=== PATIENT | male | born 1940 | race African-American/Black ===

== ENCOUNTER 2017-02-15 16:20 | Inpatient (IN) | payer MEDICARE, OTHER ==
--- NOTE | ~2017-02-15 | CN ---
Consultation Report [facility] [address] [facility] [place]. [address] NAME: KURT GRANDE : 42 STATUS : ADM IN [facility]#: [id number] AGE: 76 ADM/REG DATE : 02/15/17 MR#: [id number] REPORT SERV DATE: 02/16/17 DICTATED BY: JOSE PAINTER DATE: 02/15/17 REPORT STATUS : Draft TRANSCRIBED BY: MODL DATE: 02/15/17 CONSULTATION REPORT DATE OF CONSULTATION: Thank for the opportunity to consult on Mr. Grande. I have spent over an hour and a half of critical care time participating his care. We joined the Cardiology Service in the research laboratory manager at 5:00 p.m., helped stabilize the patient, and then move the patient up to the ICU. Reviewed his labs, changed his central line because of a poorly sutured central line at the outside hospital that originated the admission and vent stabilization and adjustments before 7:00 p.m. Mr. Grande is a 76-year-old man with no previous label of significant cardiac disease. He was in [place] and then collapsed, became unresponsive, had bystander CPR by some friends who were nurses, was admitted to an outside hospital and transferred as a code STEMI. In the research laboratory manager, he had no evidence of acute coronary occlusion and had decent LV systolic function still, though remained in shock, requiring multiple pressors. He was intubated before transfer and remains on the ventilator. PAST MEDICAL HISTORY: As noted above. Negative for cardiac disease, but positive for multiple myeloma, on Revlimid and dexamethasone. His BPH and hypertension, but no other significant cardiac or pulmonary disease. REVIEW OF SYSTEMS: Review of 10 systems could not be obtained from the patient who is intubated and unresponsive, though we did discuss the presentation with his family. SOCIAL HISTORY: Negative for tobacco abuse. FAMILY HISTORY: Noncontributory to this acute presentation. PHYSICAL EXAMINATION: GENERAL: He is intubated, hypotensive, hypoxic on mechanical ventilation, on multiple pressors. HEENT: Normocephalic and atraumatic. NECK: Supple. No lymphadenopathy. No JVD. CHEST: Symmetrical with good expansion bilaterally. He has bilateral crackles with poor air flow. CARDIOVASCULAR: He has S1 and S2, which are regular rate and rhythm. ABDOMINAL: Soft with diminished bowel sounds. EXTREMITIES: He has no edema. No clubbing. No cyanosis. ASSESSMENT AND PLAN: 1. Shock. The patient is in persistent shock. This is very concerning because his procalcitonin is normal and his cardiac evaluation by catheterization was fairly Consultation Report [place] [id number] [place]. [address] NAME: KURT GRANDE : 42 STATUS : ADM IN PAT#: [id number] AGE: 76 ADM/REG DATE : 02/15/17 MR#: [id number] REPORT SERV DATE: 02/16/17 DICTATED BY: JOSE PAINTER DATE: 02/15/17 REPORT STATUS : Draft TRANSCRIBED BY: MODL DATE: 02/15/17 unremarkable, so the etiology of this shock and his sudden decompensation is unclear to us. His BNP is not elevated and massive pulmonary embolism is less likely in that setting. He is chronically immunosuppressed on the dexamethasone and Revlimid, but again the procalcitonin is not elevated. We did check his cortisol level, which was greater than 40 despite chronic suppression with dexamethasone, so acute adrenal crisis is also less likely. We have recommended continued supportive care with aggressive pressor support, volume resuscitation, since he has good cardiac function and normal BNP and empiric antibiotic therapy despite the low procalcitonin since we do not have a good source for the origin of the shock. Unfortunately, he remains very hypoxemic, difficult to oxygenate, hypotensive, requiring multiple pressors and there is not any identifiable reversible condition and he now has evidence of shock liver and acute kidney injury. He has a very high risk of morbidity and mortality, and his family has been updated. CATE/SHARI Jose Painter M.D. / [id number] CC: Alber Araya MD
--- NOTE | ~2017-02-15 | HP ---
History And Physical [facility] [address] [facility] [place]. [address] NAME: KURT GRANDE : 42 STATUS : ADM IN PAT#: [id number] AGE: 76 ADM/REG DATE : 02/15/17 MR#: [id number] REPORT SERV DATE: 02/16/17 DICTATED BY: ALBER ARAYA DATE: 02/15/17 REPORT STATUS : Draft TRANSCRIBED BY: MODL DATE: 02/15/17 DATE OF ADMISSION: 02/15/2017 ADMISSION DIAGNOSES: 1. Cardiac arrest. 2. Shock. HISTORY OF PRESENT ILLNESS: Mr. Grande is a 76-year-old male who presented to [facility] as a transfer from [facility] for management of cardiac arrest and shock presumed to be secondary to a cardiac etiology. History is obtained from clinicians and subsequently from family as the patient was not able to provide history. Apparently, the patient was in [place] today and collapsed suddenly. This was a witnessed arrest. Subsequently, he had CPR in the field. Initial rhythm unknown, but there is no report of the patient having received any defibrillation. He received CPR with eventual return to spontaneous circulation, and then upon arrival to the ER, he was noted to have an abnormal EKG with ST elevations in lead III concerning for inferior GA. Code STEMI was activated and based on my discussion with the ER physician, I agreed to bring the patient to the labor relations officer for further management. Both in the ER and en route, the patient required additional ACLS and pressor support. Upon arrival, pressures were marginal, and after I was unable to localize a reliable pulse, CPR was again initiated. Eventually, we obtained arterial access and cardiac catheterization was performed. These findings are detailed separately, but in summary demonstrated no evidence of coronary artery disease and normal LV systolic function suggestive of a noncardiac etiology to his presentation. PAST MEDICAL HISTORY: 1. Multiple myeloma, recently initiated medical treatment. 2. Allopurinol. 3. Hypertension. MEDICATIONS: Full med list not available at the time of dictation. Per family, the patient was taking Revlimid, dexamethasone, Cartia, and allopurinol amongst other medications. ALLERGIES: NONE KNOWN. FAMILY HISTORY: Noncontributory. SOCIAL HISTORY: The patient is . He does not smoke, drink alcohol, or use tobacco. He is a musician. REVIEW OF SYSTEMS: Unable to be performed, but per the family, the patient has been short of breath and generally weak recently. PHYSICAL EXAMINATION: VITAL SIGNS: Upon arrival to labor relations officer, blood pressure 50/30 noninvasively, heart rate approximately 100, intubated but with spontaneous respirations. History And Physical [address] [place]. [address] NAME: KURT GRANDE : 42 STATUS : ADM IN PAT#: [id number] AGE: 76 ADM/REG DATE : 02/15/17 MR#: [id number] REPORT SERV DATE: 02/16/17 DICTATED BY: ALBER ARAYA DATE: 02/15/17 REPORT STATUS : Draft TRANSCRIBED BY: SHARI DATE: 02/15/17 CARDIOVASCULAR: Limited exam notable for absence of murmurs with irregular rhythm. LUNGS: Clear breath sounds bilaterally. ABDOMEN: Soft abdomen with hypoactive bowel sounds. EXTREMITIES: Warm extremities with marginal pulses radially and femorally. IMAGING STUDIES: EKG demonstrates idioventricular rhythm with ST-elevations isolated to lead III. No reciprocal ST depressions, QRS prolongation. No prior EKG for comparison. Cardiac cath detailed separately and summarized in HPI. IMPRESSIONS/RECOMMENDATIONS: 1. Cardiac arrest, PEA, unknown etiology at this time. 2. Shock, suspect vasodilatory shock in the absence of findings supportive of cardiac etiology. 3. History of multiple myeloma. 4. Respiratory failure. 5. Metabolic/respiratory acidosis. The patient will be admitted to the CCU and will be treated with hypothermia protocol and pressor support, currently requiring high dose of levo and epinephrine. Based on my discussion with Critical Care, we will likely manage him initially with stress-dose steroids and broad-spectrum antibiotics while workup is ongoing. We will wean pressors as required. I had a lengthy discussion with the family about his presentation and findings and they are aware of the high mortality associated with this condition. BEVERLEY/SHARI Alber Araya MD / [id number] CC: Alber Araya MD
--- NOTE | ~2017-02-15 | DS ---
Discharge Summary [facility] [address] [place]. [address] NAME: KURT SANCHEZ : 44 STATUS : DIS IN PAT#: [id number] AGE: 76 ADM/REG DATE : 02/15/17 MR#: [id number] REPORT SERV DATE: 04/01/17 DICTATED BY: TOM GAYTAN DATE: 04/01/17 REPORT STATUS : Draft TRANSCRIBED BY: MODL DATE: 04/01/17 ADMISSION DATE: 02/15/2017 DISCHARGE DATE: 02/16/2017 SUMMARY DATE OF : 02/16/2017 DIAGNOSES: 1. Cardiac arrest. 2. Acute respiratory failure. 3. Shock. 4. Acute renal failure. 5. Metabolic acidosis. 6. Shock liver. 7. Anoxic brain injury. SUMMARY: Please see dictated H and P and consult notes for full patient presentation and history. BRIEF SUMMARY: The patient was a 76-year-old gentleman, who presented following a witnessed cardiac arrest in [employer]. Bystander CPR was performed. The patient was admitted to the ICU with severe shock and respiratory failure, as well as shock liver and acute renal failure. By the time Neurology examined the patient, he was already exhibiting loss of brainstem reflexes and had a very poor neurologic outcome. The patient's family decided to make him comfort care measures, and he was terminally extubated and with family at bedside. CJ/SHARI Tom Gaytan MD / [id number] CC: Alber Araya MD
--- NOTE | ~2017-02-15 | EEG ---
Electroencephalogram [facility] [address] [facility] [place]. [address] NAME: KURT SANCHEZ : 44 STATUS : ADM IN PAT#: [id number] AGE: 76 ADM/REG DATE : 02/15/17 MR#: [id number] REPORT SERV DATE: 02/16/17 DICTATED BY: DATE: REPORT STATUS : Draft TRANSCRIBED BY: MODL DATE: 02/16/17 Neurology EEG CLINICAL INDICATIONS: Comatose state, post anoxic brain injury. DESCRIPTION: This EEG performed with 10/20 electrode placement system. During the EEG study, the patient was noted to have low amplitude throughout EEG. No reactivity was noted to noxious stimulation applied to right upper extremity nail bed as well as sternal rub and clapping. Photic stimulation was performed, and no amplitude, no driving response was seen. During the EEG study, the patient was noted to have low amplitude throughout EEG persistence throughout the entire EEG study. No variation or reactivity was seen. EKG artifact was noted throughout the entire EEG study. INTERPRETATION: This EEG study obtained entirely during comatose state may be considered abnormal secondary to low amplitude throughout EEG, likely consistent with brain or severe brain injury. Clinical correlation is recommended. [facility]/MODL Toñito Watson MD / [id number] CC: Alber Araya MD
--- NOTE | ~2017-02-15 | CN ---
Consultation Report [facility] [address] [place]. [address] NAME: KURT GRANDE : 42 STATUS : ADM IN PAT#: [id number] AGE: 76 ADM/REG DATE : 02/15/17 MR#: [id number] REPORT SERV DATE: 02/16/17 DICTATED BY: JIM HSU DATE: 02/16/17 REPORT STATUS : Draft TRANSCRIBED BY: MODL DATE: 02/16/17 CONSULTATION NOTE DATE OF CONSULTATION: 02/16/2017 TIME OF CONSULT: 11:11 a.m. CONSULTING GROUP: [facility]. CHIEF COMPLAINT: Suspicious for cardiac arrest and shock. EKG suspicious for STEMI; however, clean coronaries, ESMER, shock liver, multiple organ failure, multiple myeloma now max pressors and no brain waves on EEG. HISTORY OF PRESENT ILLNESS: Mr. Grande is a 76-year-old, gentleman who sustained a witnessed cardiac arrest at [employer], what appear to be a cardiac arrest. The patient was brought to [facility] and electrolytes appeared stable, but the patient was then emergently transferred to [facility] for coronary catheterization. This revealed normal LV function and clean coronaries. Therefore, etiology of his shock and episode may be sepsis related. Dr. Painter saw the patient, and mentioned a low procalcitonin, but as the night went on, the patient had increased pressor requirements, increased ventilator requirements, and was bleeding from several different lines and tubes sites. His rectal Matthews, OG tube, ET tube and several arterial lines and IV accesses were all bleeding within or inside of the tubing. He is currently on max dose Levophed, epinephrine, and Rigoberto- Synephrine vasopressin. Dr. Araya and Dr. Painter asked me to see the patient for ESMER secondary to shock AT. He is currently on D5W with 2 amps of bicarb at 100 mL an hour. His last blood gas showed a pH of 7.18 with a pCO2 of 39, and bicarbonate 14.3, however, he is requiring FiO2 of 100 just to maintain a PO2 of 77. His platelet count is down to 53. He has a history of multiple myeloma, on several chemotherapy agents. His urine output is only 20 mL of dark nena urine. There were emotional family members at the bedside; however, next of kin is his son who does not appear to be functional enough to make decisions as he is inebriated. Security was notified, I spoke with ICU nursing and nurse river crossing supervisor. They are going to talk to risk management as well as ethical committee at [facility] to determine where to progress from here in terms of decision making. He has a girlfriend and an ex-, both of which are appropriate, but not deemed to be next of kin. PAST MEDICAL HISTORY: Multiple myeloma, hypertension, and benign prostatic hypertrophy. FAMILY HISTORY: Noncontributory. SOCIAL HISTORY: Lives with a girlfriend. Has an ex-. Has a son who has psychological issues and goes to [facility] frequently currently. Son is inebriated. No tobacco. [facility] [place] [facility]. Works as a musician. REVIEW OF SYSTEMS: Consultation Report [place] [id number] [place]. [address] NAME: KURT GRANDE : 42 STATUS : ADM IN [facility]#: [id number] AGE: 76 ADM/REG DATE : 02/15/17 MR#: [id number] REPORT SERV DATE: 02/16/17 DICTATED BY: JIM HSU DATE: 02/16/17 REPORT STATUS : Draft TRANSCRIBED BY: SHARI DATE: 02/16/17 Unable to obtain due to patient being in severe shock requiring maximum support in ICU. PHYSICAL EXAMINATION: VITAL SIGNS: Temperature 97.7, pulse of 112, blood pressure 105/74, he is on max FiO2 of 100, PEEP of 8. GENERAL: He is obtunded, gravely ill. EYES: Swollen eyelids, closed eyes. ENT: OG tube with gross blood. ET tube with bloody aspirate. LYMPH: Unable to assess due to swelling. SKIN: Mottled appearance, cold and clammy. HEART: S1, S2. Tachycardic, on four maximum doses of pressors. LUNGS: Intubated, ventilated, rhonchi all rolon. Maximum FiO2 requirement. ABDOMEN: Rectal Matthews with gross blood. He has distended abdomen. EXTREMITIES AND PSYCH: Scant dark urine in Matthews, he is bleeding around lines. LABORATORY DATA: Chest x-ray shows no pneumothorax, multifocal bilateral airspace consolidation, most likely pneumonia and distended stomach. ABG; pH of 7.18, pCO2 of 39, PO2 of 77, bicarbonate 14.3, 91% O2 saturation on FiO2 of 100. White count 3.0, hemoglobin 10.3, hematocrit 29.8, and platelets 53. Sodium 149, potassium 2.5, chloride 109, bicarb 18, BUN 45, creatinine 2.06 and glucose 363. Calcium 6.5, albumin 1.3, magnesium 2.7, phosphorus 8.3, ALT 2304, AST 2841, LDH 1330, ferritin 4754, troponin I 9.95, lactic acid 16.2, ammonia level 200 and ferritin 4754. ASSESSMENT AND PLAN: Mr. Grande is a 76-year-old, gentleman with multiorgan failure from hypotension shock, most likely fatal arrhythmia event at [employer] witnessed, then etiology could be sepsis pneumonia, which was shown on x-ray. He now has gravely ill labs. He has underlying multiple myeloma, taking chemotherapy and ATN. Renal: The patient, due to his grim prognosis, at high mortality, is not an BPM ANALYST or renal replacement therapy candidate. He is currently on four maximum dose pressors. He is bleeding from most sites, oral, rectal and around IV and arterial lines. Family is aware. Risk Management and Ethics have been aiding in decision making from [facility]. I spoke with JOB ANALYSIS MANAGER about the high probability of mortality and options for withdrawal of care. His EEG showed that he had no brain waves functional or conducive to life. We will sign off and recommend withdrawal of care without further heroic efforts. LOUANN/SHARI Jim Hsu M.D. / [id number] Consultation Report [address] [address] NAME: KURT GRANDE : 42 STATUS : ADM IN [facility]#: [id number] AGE: 76 ADM/REG DATE : 02/15/17 MR#: [id number] REPORT SERV DATE: 02/16/17 DICTATED BY: JIM HSU DATE: 02/16/17 REPORT STATUS : Draft TRANSCRIBED BY: MODL DATE: 02/16/17 CC: Alber Araya MD
--- NOTE | ~2017-02-15 | CN ---
Consultation Report [facility] [address] [place]. [address] NAME: KURT SANCHEZ : 44 STATUS : ADM IN [facility]#: [id number] AGE: 76 ADM/REG DATE : 02/15/17 MR#: [id number] REPORT SERV DATE: 02/16/17 DICTATED BY: DATE: REPORT STATUS : Draft TRANSCRIBED BY: MODL DATE: 02/16/17 NEUROLOGY CONSULTATION DATE OF CONSULTATION: 02/16/2017 REASON FOR CONSULT: Encephalopathy. HISTORY OF PRESENT ILLNESS: This is a 76-year-old male who sustained cardiac arrest at [facility] on 02/15/2017, CPR was performed in the field. The patient, unfortunately, coded again while en route from [place] to [facility] and required resuscitation at [facility] as well as in the cath lab technologist. The patient was started on 4 pressors secondary to hypotension. Afterwards hypothermia protocol was attempted, however secondary to unstable hemodynamic signs, hypothermia was terminated. The patient has not been on any sedations or paralytics afterwards. No jerking or shaking with seizure- like activity was otherwise observed by the nursing staff. No further event was noted overnight. The patient was not noted to have significant coronary artery disease at the cath lab technologist. Overnight, the patient was not noted to have any spontaneous movement or improvement of neuro status. The patient, prior to the hospitalization, was not noted to have any recent illness, fever, chills, nausea, vomiting, or complaints of shortness of breath. PAST MEDICAL HISTORY: The patient's past medical history is significant for history of multiple myeloma, recently initiated on medical therapy as well as hypertension. FAMILY HISTORY: No significant family history was noted although the patient is unable to provide answers. SOCIAL HISTORY: Per medical records, no tobacco, alcohol, or recreational drug usage. REVIEW OF SYSTEMS: Otherwise unable to be obtained secondary to the patient's current mental status. ALLERGIES: AT THE TIME OF EVALUATION, THE PATIENT WAS NOTED TO HAVE NO KNOWN DRUG ALLERGIES. MEDICATIONS: The patient's current medications consist of heparin subcu; Protonix; Solu- Cortef; multivitamin; thiamine; vancomycin; and Zosyn. In addition, the patient was on epinephrine, Levophed, and Rigoberto-Synephrine as well as vasopressor. PHYSICAL EXAMINATION: VITAL SIGNS: The patient was noted to have vital signs with T-max of 98.2, heart rate of 107 to 128, respirations of 17 to 18, and blood pressure of 74 to 115 over 36 to 79. GENERAL: The patient is well developed, well nourished, in no acute distress. CARDIOVASCULAR EXAMINATION: Tachycardic. No carotid bruits were otherwise auscultated. PULMONARY: Examination was clear to auscultation bilaterally. NEUROLOGICAL EXAMINATION: Consultation Report [address] [place]. [address] NAME: KURT SANCHEZ : 42 STATUS : ADM IN PAT#: [id number] AGE: 76 ADM/REG DATE : 02/15/17 MR#: [id number] REPORT SERV DATE: 02/16/17 DICTATED BY: DATE: REPORT STATUS : Draft TRANSCRIBED BY: MODL DATE: 02/16/17 Generally, the patient is comatose, intubated. No sedation was on board; not following commands and nonverbal. Cranial nerves 2 through 12, pupils are fixed, 3 mm not reactive to light at the time of evaluation. No horizontal eye movement or oculocephalic maneuver. No [id number]-[id number] response was noted. No corneal reflex was noted. No grimace to noxious stimulation in bilateral jaws with the patient demonstrated no grimace, posturing to noxious stimulation in all four extremities. The patient was areflexic bilaterally throughout with the patient demonstrating no gag reflexes at the time of evaluation. LABORATORY STUDIES: At the time of evaluation, the patient was noted to have laboratory studies demonstrated white blood cell count of 3.0, hemoglobin of 10.7, hematocrit of 32.4, and platelet count of 53. Procalcitonin of 32.33. Sodium of 149, potassium of 2.5, chloride of 109, bicarb of 18, BUN of 45, creatinine of 3.06, glucose of 363, calcium of 6.5, and the patient was noted to have ALT of 2304, AST of 2841, with the patient noted to have elevated troponin of 9.95. ABG demonstrated pH of 7.18, pCO2 was 39, PO2 was 77, bicarb of 14.3, O2 saturation of 91.0, folate of 29.2, and vitamin B12 of 727. TSH was 3.01, free T4 of 0.96. No neuro imaging was otherwise obtained. IMPRESSION: Encephalopathy. The patient was noted to have no clear brainstem reflexes at the time of evaluation. We will perform EEG. Prognosis is currently guarded to poor. We will provide supportive care. RECOMMENDATION: 1. EEG. 2. Supportive care. 3. Prognosis is guarded to poor. [facility]/MODL Toñito Watson MD / [id number] CC: Alber Araya MD
[~2017-02-15 16:20] MED LIST: ALPHA LIPOIC300 MG PO; B COMPLEX-C PO; CALTRA600D PO; CARTIA XT240 MG/24 PO; CYMBALTA30 PO; LISINOPRIL40 MG PO; PRAVAC PO; VIAGRA100 MG PO; VITAMIN D1000 UNI1 PO
[2017-02-15 18:47] LABS: CREATININE 1.6 MG/DL (0.70-1.30)
[2017-02-15 19:17] LABS: BE (BASE EXCESS) -12.6 MEQ/L (0 +/- 2.5); CARBOXYHEMOGLOBIN 0.7 % (0-3); HCO3 (ACTUAL BICARBONATE) 16.1 MEQ/L (23-27); INSTRUMENT SERIAL # 8083; METHEMOGLOBIN 0.5 % (0-3); MODE CMV; O2 CONTENT 9.6 VOL% (18-24); OPERATOR ID 16469; PCO2 (CO2 TENSION) 51 MMHG (35-45); PO2 (O2 TENSION) 61 MMHG (79-93); SAMPLE Arterial; TIDAL VOLUME 500 ML; pH 7.12 (7.37-7.43)
[2017-02-15 19:33] LABS: MEAN CORPUS HGB CONC 33.3 g/dL (32.0-36.0); MEAN CORPUSCULAR HEMOGLOB 32.6 pg (26.0-34.0); MEAN CORPUSCULAR VOLUME 97.7 fL (80-100); MEAN PLATELET VOLUME 11.4 fL (9.2-13.0); NUCLEATED RED BLOOD CELLS 6.5 /100WBC (0-0); PLATELET COUNT 59 10/3/uL (150-400)
[2017-02-15 19:34] LABS: HEMATOCRIT 25.2 % (40.0-51.0); HEMOGLOBIN 8.4 g/dL (13.6-17.8); RED CELL COUNT 2.58 10/6/uL (4.7-6.1); RETICULOCYTE COUNT 1.7 % (0.5-2.5); RETICULOCYTE COUNT ABSOLUTE 43.9 10/3/uL (20.2-119.8); WHITE BLOOD CELLS 2.6 10/3/uL (4.5-10.5)
[2017-02-15 19:35] LABS: MANUAL DIFF YES %
[2017-02-15 19:40] LABS: INTERNATIONAL NORMAL RATI 2.2 UNITS (-)
[2017-02-15 20:06] LABS: BAND NEUTROPHILS 8 %; EOSINOPHILS 2 %; EOSINOPHILS ABSOLUTE (CALC) 0.05 10/3/uL (0.0-0.53); IMMATURE GRANS ABSOLUTE (CALC) 0.05 10/3/uL (0.0-0.11); LYMPHOCYTES 48 %; LYMPHOCYTES ABSOLUTE (CALC) 1.25 10/3/uL (0.67-4.30); MONOCYTES 5 %; MONOCYTES ABSOLUTE (CALC) 0.13 10/3/uL (0.21-1.20); MYELOCYTES 2 %; NEUTROPHILS ABSOLUTE (CALC) 1.12 10/3/uL (2.02-8.40); SEGMENTED NEUTROPHIL (0) 35 %; TOTAL NUCLEATED CELLS 100
[2017-02-15 20:07] LABS: BURR CELLS 1+ (3-10/OIF) (0-2/OIF); PLATELET ESTIMATE DEC (ADEQUATE)
[2017-02-15 20:08] LABS: PROCALCITONIN <0.05 ng/mL (<0.5)
[2017-02-15 20:09] LABS: POIKILOCYTOSIS 1+ (5-10/OIF) (0-5/OIF)
[2017-02-15 20:18] LABS: PARTIAL THROMBO TIME > 150.0 SEC (22.5-37.2)
[2017-02-15 20:23] LABS: BUN (BLOOD UREA NITROGEN) 45 MG/DL (6-23); CALCIUM, SERUM 7.1 MG/DL (8.5-10.4); CHLORIDE, SERUM 103 MMOL/L (96-112); CPK (IF ELEVATED MB BANDS) 484 U/L (0-200); CREATININE 2.49 MG/DL (0.70-1.30); D-DIMER QUANTITATIVE > 20.00 ug/mLFEU (< 0.50); FERRITIN 4754 NG/ML (26-388); FREE T4 0.96 NG/DL (0.76-1.46); GFR AFRICAN AMERICAN 28 ML/MIN (>=60); GFR NON AFRICAN AMERICAN 24 ML/MIN (>=60); IRON BINDING CAPACITY 119 MCG/DL (250-450); IRON, SERUM 98 MCG/DL (35-150); PHOSPHORUS, SERUM 8.3 MG/DL (2.5-4.5); POTASSIUM, SERUM 3.5 MMOL/L (3.5-5.3); SGOT(AST) 684 U/L (5-40); SGPT(ALT) 611 U/L (5-65); SODIUM, SERUM 143 MMOL/L (135-148); TOTAL BILIRUBIN 0.4 MG/DL (0-1.2); TRIGLYCERIDE 64 MG/DL (< 150)
[2017-02-15 20:24] LABS: A/G RATIO 0.7 (0.7-1.9); ALBUMIN 1.5 G/DL (3.5-5.0); ALKALINE PHOSPHATASE 85 U/L (45-117); CHOL/HDL RATIO(NOT ORDER) 2.5 (0-5); CHOLESTEROL 100 MG/DL (< 200); CO2 (CARBON DIOXIDE) 20 MMOL/L (24-34); FOLATE 29.2 NG/ML (>5.2); GLOBULIN 2.2 G/DL (2.5-4.1); GLUCOSE, SERUM 563 MG/DL (60-99); HDL CHOLESTEROL 40 MG/DL (> 39); LDL CHOLESTEROL 48 MG/DL (< 130); NON-HDL CHOLESTEROL 60 MG/DL (< 160); TOTAL PROTEIN 3.7 G/DL (6.0-8.5)
[2017-02-15 20:25] LABS: SED RATE 12 MM/HR (0-15); TROPONIN I 5.13 NG/ML (<0.05)
[2017-02-15] MEDS ORDERED: *UNABLE1 (20:25)
[2017-02-15 20:26] LABS: PROTIME (NOT ORD) 24.4 SEC (12.0-14.5)
[2017-02-15] MEDS ORDERED: ALLOPURINOL (20:26)
[2017-02-15] MEDS ORDERED: CARTIA (20:26)
[2017-02-15] MEDS ORDERED: DECADRON (20:27)
[2017-02-15] MEDS ORDERED: GLUCOSAMINE-CHONDROI (20:27)
[2017-02-15] MEDS ORDERED: DITROPAN (20:28)
[2017-02-15] MEDS ORDERED: PRAVASTATIN (20:28)
[2017-02-15] MEDS ORDERED: FLOMAX (20:29)
[2017-02-15] MEDS ORDERED: REVLIMID (20:29)
[2017-02-15] MEDS ORDERED: ILEVRO 0.3% (20:30)
[2017-02-15] MEDS ORDERED: PREDNISOLONE AC 1% (20:30)
[2017-02-15] MEDS ORDERED: VIGAMOX (20:30)
[2017-02-15] MEDS ORDERED: VIAGRA (20:31)
[2017-02-15] MEDS ORDERED: VOLTAREN GEL (20:32)
[2017-02-15 21:09] LABS: C-REACTIVE PROTEIN ULTRAQUANT 41.7 MG/L (<3.0)
[2017-02-15 21:28] LABS: CKMB INDEX (NOT ORD) 3.3
[2017-02-15 23:00] LABS: BE (BASE EXCESS) -16.8 MEQ/L (0 +/- 2.5); CARBOXYHEMOGLOBIN 1.4 % (0-3); HCO3 (ACTUAL BICARBONATE) 11.3 MEQ/L (23-27); HEMOBLOGIN CONTENT 6.9 G/DL (14-18); INSTRUMENT SERIAL # 8083; METHEMOGLOBIN 0.8 % (0-3); MODE CMV; O2 CONTENT 8.1 VOL% (18-24); OPERATOR ID 16469; PCO2 (CO2 TENSION) 37 MMHG (35-45); PO2 (O2 TENSION) 71 MMHG (79-93); SAMPLE Arterial; TIDAL VOLUME 550 ML; pH 7.11 (7.37-7.43)
[2017-02-15 23:41] LABS: HEMATOCRIT 18.9 % (40.0-51.0); HEMOGLOBIN 6.3 g/dL (13.6-17.8); MEAN CORPUS HGB CONC 33.3 g/dL (32.0-36.0); MEAN CORPUSCULAR HEMOGLOB 32.8 pg (26.0-34.0); MEAN CORPUSCULAR VOLUME 98.4 fL (80-100); MEAN PLATELET VOLUME 11.1 fL (9.2-13.0); PLATELET COUNT 55 10/3/uL (150-400); RBC DISTRIBUTION WIDTH 16.2 % (12.0-16.0); RED CELL COUNT 1.92 10/6/uL (4.7-6.1); WHITE BLOOD CELLS 2.6 10/3/uL (4.5-10.5)
[2017-02-15 23:45] LABS: MANUAL DIFF YES %
[2017-02-16 00:15] LABS: BAND NEUTROPHILS 8 %; IMMATURE GRANS ABSOLUTE (CALC) 0.75 10/3/uL (0.0-0.11); LYMPHOCYTES 22 %; LYMPHOCYTES ABSOLUTE (CALC) 0.57 10/3/uL (0.67-4.30); METAMYELOCYTES 29 %; NEUTROPHILS ABSOLUTE (CALC) 1.27 10/3/uL (2.02-8.40); PLATELET ESTIMATE DEC (ADEQUATE); RBC MORPHOLOGY NORM (NORMAL); SEGMENTED NEUTROPHIL (0) 41 %; TOTAL NUCLEATED CELLS 100
[2017-02-16 04:29] LABS: BE (BASE EXCESS) -13.2 MEQ/L (0 +/- 2.5); CARBOXYHEMOGLOBIN 0.3 % (0-3); HCO3 (ACTUAL BICARBONATE) 14.3 MEQ/L (23-27); HEMOBLOGIN CONTENT 11.2 G/DL (14-18); INSTRUMENT SERIAL # 8083; METHEMOGLOBIN 0.3 % (0-3); MODE CMV; O2 CONTENT 14.3 VOL% (18-24); OPERATOR ID 16469; PCO2 (CO2 TENSION) 39 MMHG (35-45); PO2 (O2 TENSION) 77 MMHG (79-93); SAMPLE Arterial; TIDAL VOLUME 550 ML; pH 7.18 (7.37-7.43)
[2017-02-16 04:53] LABS: MEAN CORPUSCULAR HEMOGLOB 30.6 pg (26.0-34.0); MEAN PLATELET VOLUME 11.8 fL (9.2-13.0); NUCLEATED RED BLOOD CELLS 5.3 /100WBC (0-0); PLATELET COUNT 53 10/3/uL (150-400)
[2017-02-16 04:54] LABS: HEMATOCRIT 32.4 % (40.0-51.0); HEMOGLOBIN 10.7 g/dL (13.6-17.8); MEAN CORPUSCULAR VOLUME 92.6 fL (80-100)
[2017-02-16 04:55] LABS: MANUAL DIFF YES %
[2017-02-16 05:11] LABS: A/G RATIO 0.7 (0.7-1.9); ALBUMIN 1.3 G/DL (3.5-5.0); BUN (BLOOD UREA NITROGEN) 45 MG/DL (6-23); CHLORIDE, SERUM 109 MMOL/L (96-112); CO2 (CARBON DIOXIDE) 18 MMOL/L (24-34); GLOBULIN 1.8 G/DL (2.5-4.1); SGOT(AST) 2841 U/L (5-40); SGPT(ALT) 2304 U/L (5-65); SODIUM, SERUM 149 MMOL/L (135-148); TOTAL BILIRUBIN 0.8 MG/DL (0-1.2); TOTAL PROTEIN 3.1 G/DL (6.0-8.5)
[2017-02-16 05:13] LABS: ALKALINE PHOSPHATASE 107 U/L (45-117); CALCIUM, SERUM 6.5 MG/DL (8.5-10.4); CREATININE 3.06 MG/DL (0.70-1.30); GFR AFRICAN AMERICAN 22 ML/MIN (>=60); GFR NON AFRICAN AMERICAN 19 ML/MIN (>=60); GLUCOSE, SERUM 363 MG/DL (60-99); POTASSIUM, SERUM 2.5 MMOL/L (3.5-5.3); TROPONIN I 9.95 NG/ML (<0.05)
[2017-02-16 05:20] LABS: BAND NEUTROPHILS 8 %; IMMATURE GRANS ABSOLUTE (CALC) 0.84 10/3/uL (0.0-0.11); LYMPHOCYTES 27 %; LYMPHOCYTES ABSOLUTE (CALC) 0.81 10/3/uL (0.67-4.30); METAMYELOCYTES 22 %; MONOCYTES 3 %; MONOCYTES ABSOLUTE (CALC) 0.09 10/3/uL (0.21-1.20); MYELOCYTES 6 %; NEUTROPHILS ABSOLUTE (CALC) 1.26 10/3/uL (2.02-8.40); SEGMENTED NEUTROPHIL (0) 34 %; TOTAL NUCLEATED CELLS 100
[2017-02-16 05:21] LABS: ANISOCYTOSIS 1+ (5-10/OIF) (0-5/OIF); BURR CELLS 1+ (3-10/OIF) (0-2/OIF); PLATELET ESTIMATE DEC (ADEQUATE); VACUOLATED NEUTROPHILES MOD
[2017-02-16 05:23] LABS: TOXIC GRANULATION SLT
[2017-02-16 05:24] LABS: HYPOCHROMIA 1+ (3-10/OIF) (0-2/OIF)
[2017-02-16 06:07] LABS: PROCALCITONIN 32.33 ng/mL (<0.5)
[2017-02-16 06:51] LABS: GLYCOHEMOGLOBIN (HbA1c) 6.3 % (4.7-6.1)
[2017-02-16 10:01] LABS: HEMATOCRIT 29.8 % (40.0-51.0); HEMOGLOBIN 10.3 g/dL (13.6-17.8)
== END 2017-02-16 19:00 | disposition expired | DRG 286 ==
LOC: MIC 16:20 → SSU2 16:23 → MIC 18:20
PROVIDERS: Internal Medicine Cardiovascular Disease; Internal Medicine Pulmonary Disease
PROC: 4A023N7 Measurement of Cardiac Sampling and Pressure, Left Heart, Percutaneous Approach (ICD-10-PCS; principal; 2017-02-15)
PROC: B2111ZZ Fluoroscopy of Multiple Coronary Arteries using Low Osmolar Contrast (ICD-10-PCS; 2017-02-15)
PROC: B2151ZZ Fluoroscopy of Left Heart using Low Osmolar Contrast (ICD-10-PCS; 2017-02-15)
DX: I46.9 Cardiac arrest, cause unspecified (principal); J96.00 Acute respiratory failure, unspecified whether with hypoxia or hypercapnia; K72.00 Acute and subacute hepatic failure without coma; R57.8 Other shock; N17.0 Acute kidney failure with tubular necrosis; G93.40 Encephalopathy, unspecified; C90.00 Multiple myeloma not having achieved remission; E87.2 Acidosis; D62 Acute posthemorrhagic anemia; E27.2 Addisonian crisis; Z51.5 Encounter for palliative care; Z66 Do not resuscitate; I10 Essential (primary) hypertension; N40.0 Benign prostatic hyperplasia without lower urinary tract symptoms; D69.6 Thrombocytopenia, unspecified; Z79.899 Other long term (current) drug therapy
CPT/HCPCS: 31720; 36415; 36600; 71010; 80048; 80053; 80061; 82140; 82150; 82533; 82550; 82553; 82607; 82728; 82746; 82803; 82805; 82962; 83036; 83540; 83550; 83605; 83615; 83690; 83735; 83880; 84100; 84132; 84145; 84295; 84439; 84443; 84484; 85014; 85018; 85025; 85045; 85379; 85610; 85652; 85730; 86141; 86850; 86900; 86901; 86920; 87040; 87641; 92950; 93005; 93458; 93567; 94002; 94003; 95816; 99291; A9270-GY; C1769; C9113; J0583; J2250; J2370; J2543; J2930; J3010; J3370; P9016; Q9967